=== PATIENT | female | born 1955 | race Caucasian/White ===

== ENCOUNTER 2019-11-28 17:54 | Emergency (ER) | payer SELFPAY ==
[~2019-11-28] VITALS: Ht 162.6 cm; Wt 117.9 kg
[2019-11-28 17:54] VITALS: BP_SYST 165
--- NOTE | 2019-11-28 17:54 | NUR ---
Patient triaged and placed in Surge Tent. VSS and patient appears in no acute distress at this time. Awaiting available bed, and MD notified of need for MSE.
--- NOTE | 2019-11-28 17:55 | NUR ---
Patient came from home for evaluation of COVID-19 symptoms. Patient is complaining of "not feeling good" since yesterday with cough and bodyaches.
[2019-11-28] MEDS ORDERED: ACETAMINOPHEN 500 MG TABLET PO ONE (19:00)
--- NOTE | 2019-11-28 19:08 | NUR ---
ER Dr. Malik at bedside examining patient.
--- NOTE | 2019-11-28 19:17 | NUR ---
Patient given written and verbal discharge instructions and verbalizes understanding. ER MD discussed with patient the results and treatment provided. Patient in stable condition. ID arm band removed. Rx of tylenol given. Patient educated on pain management and to follow up with PMD. Pain Scale 0/10. Opportunity for questions provided and answered. Medication side effect fact sheet provided.
[2019-11-28 19:18] VITALS: BP_SYST 165
== END 2019-11-28 19:18 | disposition home or self-care (01) ==
LOC: SED 17:54
DX: U07.1 COVID-19 (principal); I10 Essential (primary) hypertension; E11.9 Type 2 diabetes mellitus without complications
CPT/HCPCS: 99283; U0003